=== PATIENT | male | born 1945 | race Caucasian/White ===

== ENCOUNTER 2020-05-29 11:14 | Emergency (ER) | payer MEDICARE, SELFPAY ==
[~2020-05-29] VITALS: Ht 177.8 cm; Wt 68.0 kg
[2020-05-29] MEDS ORDERED: SODIUM CHLORIDE FLUSH 10ML SYR IVF ONE (11:30)
--- NOTE | 2020-05-29 11:47 | NUR ---
pt biba from urgent care, complaint of generalized weakness and cough for past several months, syncopal episode one week ago. pt declined medical workup from EMS at time of syncope. pt notes neck pain, but states it has been present for several weeks. pt denies any acute symptoms today, states he went to urgent care to evaluate weakness. urgent care sent pt as he was found to be hypotensive, lowest bp 80/50 on left arm, with rt arm bp approx 30 pts higher than left. pt has occaisional "spotting" of blood per rectum x 2 months. all monitors placed on pt, pt is nsr with no ectopy noted. EKG taken and reviewed by ADÁN Hamilton. pt is a&o, resps even and unlabored, nadn. Pt seen and examined by DAPHNEY Arroyo and MD Hamilton. pt's daughter called and given update with pt permission.
[2020-05-29 11:53] LABS: BASOPHILS # (AUTO) 0.04 x10^3/uL (0-0.1); BASOPHILS % (AUTO) 1 % (0-1); EOSINOPHILS # (AUTO) 0.72 x10^3/uL (0-0.4); EOSINOPHILS % (AUTO) 9 % (1-7); LYMPHOCYTES # (AUTO) 1.75 x10^3/uL (1-3.4); LYMPHOCYTES % (AUTO) 21 % (22-44); MD NO; MEAN CORPUSCULAR HGB CONC 34.1 g/dL (33.2-36.2); MEAN CORPUSCULAR VOLUME 94.1 fL (81-97); MEAN PLATELET VOLUME 8.1 fL (7.4-10.4); MONOCYTES % (AUTO) 9 % (2-9); NEUTROPHILS % (AUTO) 61 % (42-75); PLATELET COUNT 226 x10^3/uL (130-400); RED BLOOD COUNT 5.12 x10^6/uL (4.38-5.82); RED CELL DISTRIBUTION WIDTH 13.1 % (9.4-14.8)
[2020-05-29 11:58] LABS: ALANINE AMINOTRANSFERASE 25 U/L (12-78); ALBUMIN 3.6 g/dL (3.4-5.0); ANION GAP 4 mmol/L (5-15); CALCIUM 9.6 mg/dL (8.5-10.1); CHLORIDE 111 mmol/L (98-107); CREATININE 1.03 mg/dL (0.7-1.3)
[2020-05-29 12:00] LABS: D-DIMER 0.8 ug/mlFEU (0.00-0.52); INTERNATIONAL NORMALIZED RATIO 1.04 (0.93-1.1); PROTHROMBIN TIME 10.7 Seconds (9.6-11.5)
[2020-05-29 12:02] LABS: ALKALINE PHOSPHATASE 128 U/L (45-117); BILIRUBIN,TOTAL 0.5 mg/dL (0.2-1.0); TOTAL PROTEIN 7.4 g/dL (6.4-8.2); TROPONIN I < 0.015 ng/mL (0.000-0.045)
--- NOTE | 2020-05-29 13:00 | NUR ---
URINE SAMPLE COLLECTED AND SENT TO LAB. PT IS A&O, RESPS EVEN AND UNLABORED, NSR ON STABLE HAND WITH NO ECTOPY NOTED. CALL LIGHT IN [facility].
[2020-05-29 13:27] LABS: MICROSCOPIC NOT IND
[2020-05-29] MEDS ORDERED: OMNIPAQUE 350 MG/ML, 75ML BOTTLE ONE (13:38)
--- NOTE | 2020-05-29 14:00 | NUR ---
CTA RESULTS REVIEWED BY MD CAMPOS, PLAN IS FOR OUTPATIENT VASCULAR FOLLOWUP.
--- NOTE | 2020-05-29 14:31 | NUR ---
PT RESTING ON GURNEY, RESPS EVEN AND UNLABORED. NSR ON [facility] WITH NO ECTOPY NOTED. PT DENIES PAIN. AWAITING ORDERS FROM MD AFTER VASCULAR CONSULT COMPLETED.
--- NOTE | 2020-05-29 14:44 | NUR ---
TSH ADDED TO LABWORK, PT AWAITING TSH AND DISPO.
--- NOTE | 2020-05-29 14:58 | NUR ---
REPORT FROM CEE SANDERSON.
[2020-05-29 15:02] VITALS: BP 120/70
[2020-05-29 15:12] LABS: FREE T4 (FREE THYROXINE) 1.03 ng/dL (0.76-1.46)
--- NOTE | 2020-05-29 15:17 | NUR ---
REPORT GIVNE TO RN JADE AT BEDSIDE, PT A&O, RESPS EVEN AND UNLABORD, NADN. PER EDPA AND EDMD, NO IVF INDICATED. PT AWAITING TSH AND DISPO. PT INFORMED OF POC, AGREEABLE. THIS RN ATTEMPTED TO CALL PT'S DAUGHTER TO UPDATE WITH RESULTS/POC, NO ANSWER FROM DAUGHTER UPON CALL. DAUGHTER AWARE OF ED PHONE NUMBER FOR CALL BACK IF SHE WOULD LIKE RESULTS/POC.
== END 2020-05-29 15:34 | disposition home or self-care (01) ==
LOC: ED 12:58
DX: I77.1 Stricture of artery (principal); R55 Syncope and collapse; R05 Cough; R53.1 Weakness; R07.89 Other chest pain; F17.210 Nicotine dependence, cigarettes, uncomplicated; R00.0 Tachycardia, unspecified; I45.10 Unspecified right bundle-branch block; I95.1 Orthostatic hypotension; Z85.038 Personal history of other malignant neoplasm of large intestine
CPT/HCPCS: 36415; 71045; 71275; 80053; 81003; 83880; 84439; 84443; 84484; 85025; 85379; 85610; 93005; 99285; Q9967

== ENCOUNTER → 2020-06-08 | Outpatient (CLI) | payer MEDICARE ==
[~2020-06-08] MED LIST: ASPI-496 PO; CLOP75TA52 PO
[2020-06-08 10:20] LABS: BASOPHILS # (AUTO) 0.04 x10^3/uL (0-0.1); BASOPHILS % (AUTO) 1 % (0-1); EOSINOPHILS # (AUTO) 0.95 x10^3/uL (0-0.4); EOSINOPHILS % (AUTO) 12 % (1-7); LYMPHOCYTES # (AUTO) 1.75 x10^3/uL (1-3.4); LYMPHOCYTES % (AUTO) 22 % (22-44); MD NO; MEAN CORPUSCULAR HEMOGLOBIN 31.4 pg (27.5-34.5); MEAN CORPUSCULAR HGB CONC 33.1 g/dL (33.2-36.2); MEAN CORPUSCULAR VOLUME 94.9 fL (81-97); MEAN PLATELET VOLUME 8.3 fL (7.4-10.4); MONOCYTES # (AUTO) 0.58 x10^3/uL (0.2-0.8); MONOCYTES % (AUTO) 7 % (2-9); NEUTROPHILS # (AUTO) 4.76 x10^3/uL (1.8-6.8); NEUTROPHILS % (AUTO) 59 % (42-75); PLATELET COUNT 234 x10^3/uL (130-400); RED BLOOD COUNT 5.15 x10^6/uL (4.38-5.82); RED CELL DISTRIBUTION WIDTH 13.1 % (9.4-14.8)
[2020-06-08 10:29] LABS: ALBUMIN 3.6 g/dL (3.4-5.0); ANION GAP 3 mmol/L (5-15); CALCIUM 9.7 mg/dL (8.5-10.1); CHLORIDE 109 mmol/L (98-107)
[2020-06-08 10:32] LABS: ALANINE AMINOTRANSFERASE 56 U/L (12-78); ALKALINE PHOSPHATASE 121 U/L (45-117); BILIRUBIN,TOTAL 0.4 mg/dL (0.2-1.0); CREATININE 0.95 mg/dL (0.7-1.3); TOTAL PROTEIN 7.2 g/dL (6.4-8.2)
== END | disposition home or self-care (01) ==
LOC: STAR 08:58
PROVIDERS: ATTEND Surgery
DX: Z01.818 Encounter for other preprocedural examination (principal); I87.1 Compression of vein
CPT/HCPCS: 36415; 80053; 85025

== ENCOUNTER 2020-06-15 05:16 | Inpatient (IN) | payer MEDICARE ==
[~2020-06-15] VITALS: Ht 177.8 cm; Wt 66.4 kg
[2020-06-15] MEDS ORDERED: LACTATED RINGERS 1,000 ML IV SCH (06:05)
[2020-06-15] MEDS ORDERED: ATOR40TA78 PO (06:06)
[2020-06-15 06:07] VITALS: BP 135/73
[2020-06-15] MEDS ORDERED: CHLORHEXIDINE 15 ML UDC MM ONE (06:30)
[2020-06-15] MEDS ORDERED: ACETAMINOPHEN 500 MG TABLET PO ONE (07:00)
[2020-06-15] MEDS ORDERED: PAPAVERINE 30 MG/ML, 2ML ONE (07:02)
[2020-06-15] MEDS ORDERED: HEPARIN 1,000 UNITS/ML, 30ML ONE (07:02)
[2020-06-15] MEDS ORDERED: PROTAMINE SULFATE 10 MG/ML, 5ML ONE (07:02)
[2020-06-15] MEDS ORDERED: LIDOCAINE 1%, 20ML ONE (07:02)
[2020-06-15] MEDS ORDERED: FENTANYL PF 250 MCG/5ML ONE (07:06)
[2020-06-15] MEDS ORDERED: SODIUM CHLORIDE 0.9% PF 10ML ONE (07:07)
[2020-06-15] MEDS ORDERED: LIDOCAINE-MPF 2% ,5ML ONE (07:07)
[2020-06-15] MEDS ORDERED: PROMETHAZINE 25 MG/ML, 1ML IVPush PRN (07:30)
[2020-06-15] MEDS ORDERED: EPHEDRINE 50 MG/ML, 1ML IVPush PRN (07:30)
[2020-06-15] MEDS ORDERED: hydrALAzine 20 MG/ML, 1ML IV PRN (07:30)
[2020-06-15] MEDS ORDERED: HYDROmorphone 1 MG/ML, 1ML INJ IVPush PRN (07:30)
[2020-06-15] MEDS ORDERED: FENTANYL PF 100 MCG/2ML IV PRN (07:30)
[2020-06-15] MEDS ORDERED: MEPERIDINE/PF 25MG/0.5ML IVPush PRN (07:30)
[2020-06-15] MEDS ORDERED: LABETALOL 5MG/ML, 20ML IV PRN (07:30)
[2020-06-15] MEDS ORDERED: OXYcodone 5 MG/5 ML ORAL.SOL UDC PO PRN (07:30)
[2020-06-15] MEDS ORDERED: ONDANSETRON 2MG/ML, 2ML IVPush PRN (07:30)
[2020-06-15] MEDS ORDERED: KETOROLAC 30 MG/1 ML ONE (07:36)
[2020-06-15] MEDS ORDERED: GLYCOPYRROLATE 0.2MG/1ML, 5ML ONE (07:59)
[2020-06-15] MEDS ORDERED: SUCCINYLCHOLINE 20 MG/ML, 10ML ONE (08:12)
[2020-06-15] MEDS ORDERED: CEFAZOLIN 1,000 MG ONE (08:12)
[2020-06-15] MEDS ORDERED: PROPOFOL 10 MG/ML, 20ML ONE (08:12)
[2020-06-15] MEDS ORDERED: DEXAMETHASONE 4 MG/ML, 1ML ONE (08:12)
[2020-06-15] MEDS ORDERED: ONDANSETRON 2MG/ML, 2ML ONE (08:12)
[2020-06-15] MEDS ORDERED: ROCURONIUM 10MG/ML,5ML ONE (08:19)
[2020-06-15] MEDS ORDERED: SUGAMMADEX 200 MG/2 ML IVPush ONE (08:19)
[2020-06-15] MEDS ORDERED: PHENYLEPHRINE 10 MG/ML ONE ×2 (08:29→09:40)
[2020-06-15] MEDS ORDERED: OXYcodone 5 MG/5 ML ORAL.SOL UDC ONE (11:16)
[2020-06-15] MEDS ORDERED: FENTANYL PF 100 MCG/2ML ONE (11:17)
[2020-06-15] MEDS ORDERED: EPHEDRINE 50 MG/ML, 1ML ONE (11:38)
[2020-06-15] MEDS ORDERED: LACTATED RINGERS 500 ML IVBOLUS ONE (12:00)
[2020-06-15 14:00] VITALS: BP 115/64
[2020-06-15] MEDS ORDERED: HYDROcodone/APAP 5/325 TABLET PO PRN (15:00)
[2020-06-15] MEDS: D5%-0.45% NACL 1,000 ML IV SCH (15:00)
[2020-06-15] MEDS ORDERED: MORPHINE SULFATE 4 MG/ML, 1ML IV PRN (15:00)
[2020-06-15 19:50] VITALS: BP 104/63
[2020-06-15] MEDS ORDERED: ATORVASTATIN 40 MG TABLET PO SCH (21:00)
[2020-06-16 00:13] VITALS: BP 125/64
[2020-06-16] MEDS: D5%-0.45% NACL 1,000 ML IV SCH (01:00)
[2020-06-16 02:49] VITALS: BP 136/69
[2020-06-16] MEDS ORDERED: HEPARIN 5,000 UNITS/ML, 1ML SQ SCH (06:00)
[2020-06-16] MEDS ORDERED: ASPIRIN 81 MG TABLET EC PO SCH (06:00)
[2020-06-16 07:40] VITALS: BP 91/55
[2020-06-16] MEDS ORDERED: CLOPIDOGREL 75 MG TABLET PO SCH (09:00)
[2020-06-16] MEDS ORDERED: TRAM50TA2 PO (09:03)
== END 2020-06-16 09:37 | disposition home or self-care (01) | DRG 39 ==
LOC: ORIP 05:16 → 4NE 14:10 → DCLOUNGE 06-16 09:30
PROVIDERS: ADMIT Surgery; ATTEND Surgery
PROC: 03HY32Z Insertion of Monitoring Device into Upper Artery, Percutaneous Approach (ICD-10-PCS; 2020-06-15)
PROC: 03CN0ZZ Extirpation of Matter from Left External Carotid Artery, Open Approach (ICD-10-PCS; 2020-06-15)
PROC: 03UJ0KZ Supplement Left Common Carotid Artery with Nonautologous Tissue Substitute, Open Approach (ICD-10-PCS; 2020-06-15)
PROC: 03UL0KZ Supplement Left Internal Carotid Artery with Nonautologous Tissue Substitute, Open Approach (ICD-10-PCS; 2020-06-15)
PROC: 03CJ0ZZ Extirpation of Matter from Left Common Carotid Artery, Open Approach (ICD-10-PCS; principal; 2020-06-15 07:30)
DX: I65.22 Occlusion and stenosis of left carotid artery (principal); I77.1 Stricture of artery; G45.9 Transient cerebral ischemic attack, unspecified; H53.8 Other visual disturbances; H91.91 Unspecified hearing loss, right ear; Z20.828 Contact with and (suspected) exposure to other viral communicable diseases; Z85.038 Personal history of other malignant neoplasm of large intestine; Z86.73 Personal history of transient ischemic attack (TIA), and cerebral infarction without residual deficits; Z88.8 Allergy status to other drugs, medicaments and biological substances; Z90.49 Acquired absence of other specified parts of digestive tract; Z87.891 Personal history of nicotine dependence; Z79.899 Other long term (current) drug therapy; Z79.82 Long term (current) use of aspirin; Z13.9 Encounter for screening, unspecified
CPT/HCPCS: 36415; 85347; 86850; 86900; 87635; 88300; C1729; G0378; J0690; J1100; J1644; J1885; J2405; J2704; J2720; J3010; J7120; C1768; J0330; J2370; J2440